=== PATIENT | male | born 1990 | race African-American/Black ===

== ENCOUNTER 2021-08-28 19:37 | Emergency (ER) | payer SELFPAY ==
[2021-08-28 19:46] VITALS: BP 130/86; PULSE 90; RESP 18; TEMP 37; O2SAT 99
--- NOTE | 2021-08-28 20:02 | ED.GENADUL_ITS ---
Discharge Plan Disposition Patient Disposition: HOME Condition: Stable Discharge Details Clinical Impression: Fall, Closed head injury Primary Care Provider: None,None ED Provider: Xiomy Clinton Discharge Instructions Instructions: Head Injury (ED) Additional Instructions: At this time you have declined any imaging such as x-rays or CT. Without this information I cannot be sure that you do not have any internal injuries or broken bone. Please take Tylenol or Ibuprofen with food every 4-6 hours as needed for pain and swelling. Follow up with primary care provider in 3-5 days. Return to ED sooner if any worsening or concerns. Increase oral fluids. Medical Decision Making Patient presents after falling off which he reports as a bungee cord approximately 2 to 3 hours prior to arrival. Upon my entering the room he is requesting to be discharged. I'm fine, I'm ready to go he states that he fell onto his face had a bloody nose which is now resolved. He is also complaining of some left arm pain which he is moving without difficulty. He denies losing consciousness or having any blurry vision. He denies headache. Denies any neck or back pain no chest or abdominal pain. Upon entering room patient is requesting to be discharged. He is declining any imaging at this time. Patient reported initial bloody nose which has since resolved and arm pain. He denies any chest pain abdominal pain no neck or back pain. He denies any headache or blurry vision. I did offer imaging and further work-up which patient declined at this time. I did discuss that I cannot rule out any underlying injury without running some tests he verbalizes understanding. Patient discharged with strict return instructions and home care. HPI General Mode of arrival: ambulatory . Date/Time Provider Initiated Documentation: 08/28/21 19:42 . Limitations to Documentation: no limitations (Patient a poor historian) . Information obtained by: patient . HPI Narrative: Patient presents after falling off which he reports as a bungee cord approximately 2 to 3 hours prior to arrival. Upon my entering the room he is requesting to be discharged. I'm fine, I'm ready to go he states that he fell onto his face had a bloody nose which is now resolved. He is also complaining of some left arm pain which he is moving without difficulty. He denies losing consciousness or having any blurry vision. He denies headache. Denies any neck or back pain no chest or abdominal pain. General Stated Complaint: Orthopedic NILSON: 4 Review of Systems All systems reviewed & are unremarkable except as noted in HPI and below PFSH All Active Problems (Updated 08/28/21 @ 20:07 by Xiomy Clinton) Fall (Acute) Closed head injury (Acute) Social History Smoking/Tobacco Use Status: Never Smoking risk assessment performed?: Yes Alcohol Intake: never Drug use: Never Do you feel safe at home: Yes Do you feel safe in your relationship?: Yes Exam Narrative Exam Narrative: Constitutional: Alert and oriented x3. Appears stated age. Normal body habitus. Head: Normocephalic, no trauma. Eyes: Pupils PERRL, Red reflex noted, EOM's intact. Eyelids symmetrical without lesions, discharge, or swelling. ENT: Bilateral TM's WNL, External ear normal to inspection, no mastoid TTP, swelling, or erythema, Nasal turbinates WNL, no nasal discharge. Normal dentition, Posterior pharynx WNL, no exudate. Chest: RRR, Normal S1, S2, distal pulses intact. Resp: Lungs clear to auscultation bilaterally, no wheezes, rales, or rhonchi. Abdomen: Soft, non-distended, Normoactive bowel sounds all 4 quads. Musculoskeletal: Normal gait, 5/5 strength to all four extremities. Skin: No suspicious rashes or lesions. Capillary refill less than 2 sec. Neurologic: Cranial nerves II-XII intact. Alert and oriented x 3. Motor: No deficits noted. Sensory: Intact bilaterally all 4 extremities. Reflexes: DTR's intact bilaterally.. Hematologic/Lymphatic: No ecchymosis, no lymphadenopathy. Course Vital Signs Vital signs: Vital Signs Temperature 37.0 C 08/28/21 19:46 Pulse 90 08/28/21 19:46 Respiratory Rate 18 08/28/21 19:46 Blood Pressure 130/86 08/28/21 19:46 Pulse Oximetry 99 08/28/21 19:46 Temperature 37.0 C 08/28/21 19:46 Temperature Source Temporal Artery Scan 08/28/21 19:46 Pulse 90 08/28/21 19:46 Respiratory Rate 18 08/28/21 19:46 Respiratory Effort Non-Labored 08/28/21 19:53 Blood Pressure 130/86 08/28/21 19:46 Blood Pressure Position Sitting 08/28/21 19:46 Pulse Oximetry 99 08/28/21 19:46 Oxygen Delivery Method Room Air 08/28/21 19:46 Oxygen Flow Rate 0 08/28/21 19:46 Pain Level 4 08/28/21 19:46 Comment 08/28/21 19:46
== END 2021-08-28 20:12 | disposition home or self-care (01) ==
PROVIDERS: Emergency Provider Registered Nurse Emergency
DX: S09.8XXA Other specified injuries of head, initial encounter (principal); M25.512 Pain in left shoulder; W18.39XA Other fall on same level, initial encounter
CPT/HCPCS: 99282